=== PATIENT | male | born 2000 | race Two or more races ===

== ENCOUNTER 2020-03-24 11:59 | Emergency (ER) | payer MEDICAID, OTHER ==
[~2020-03-24] VITALS: Ht 177.8 cm; Wt 77.9 kg
[2020-03-24 12:23] VITALS: BP 116/86
--- NOTE | 2020-03-24 12:28 | NUR ---
pt to room at this time.
--- NOTE | 2020-03-24 12:47 | NUR ---
TASK RN: BEDSIDE REPORT TO EDILBERTO ANDREA.
--- NOTE | 2020-03-24 12:50 | NUR ---
XRAY AT BS
--- NOTE | 2020-03-24 13:01 | NUR ---
PT LAYING ON GURNEY AWAKE & CALM, RESPONDS APPORP TO STAFF, NAD AT REST, NO NEEDS AT THIS TIME, VISITOR AT BS, CALL LIGHT WITHIN REACH.
--- NOTE | 2020-03-24 14:05 | NUR ---
PT CONTINUES LAYING ON GURNEY AWAKE & CALM, RESPONDS APPORP TO STAFF, NAD AT REST, NO NEEDS AT THIS TIME, VISITOR AT BS, CALL LIGHT WITHIN REACH.
--- NOTE | 2020-03-24 14:37 | NUR ---
Patient given splint/crutch use/discharge instructions and Rx, they have confirmed that they understand the instructions. Patient ambulatory with steady gait via crutches.
== END 2020-03-24 14:39 | disposition home or self-care (01) ==
LOC: ED 14:07
DX: M76.61 Achilles tendinitis, right leg (principal)
CPT/HCPCS: 29515; 99284